=== PATIENT | female | born 1935 | race Caucasian/White ===

== ENCOUNTER 2020-06-04 18:16 | Emergency (ER) | payer MEDICARE, OTHER ==
[2020-06-04] MEDS ORDERED: Meclizine 12.5 MG Tab PO ONE (18:17)
[2020-06-04 20:19] LABS: ANION GAP 12.4 mEq/L (7-13); CHLORIDE,CL 101 mmol/L (98-107); SODIUM,NA 135 mmol/L (136-145)
--- NOTE | 2020-06-04 21:35 | CT ---
PROCEDURE INFORMATION: Exam: CT Head Without Contrast Exam date and time: 06/04/2020 9:16 PM Age: 85 years old Clinical indication: Dizziness TECHNIQUE: Imaging protocol: Computed tomography of the head without contrast. Radiation optimization: All CT scans at this facility use at least one of these dose optimization techniques: automated exposure control; mA and/or kV adjustment per patient size (includes targeted exams where dose is matched to clinical indication); or iterative reconstruction. COMPARISON: No relevant prior studies available. FINDINGS: Brain: There is mild amount of scattered areas of hypoattenuation of the supratentorial white matter, most likely secondary to microvascular ischemic changes. No acute intracranial hemorrhage. Cerebral ventricles: No ventriculomegaly. Bones/joints: Unremarkable. No acute fracture. Paranasal sinuses: Extensive mucosal thickening of paranasal sinuses. Mastoid air cells: Visualized mastoid air cells are well aerated. Soft tissues: Unremarkable. IMPRESSION: No acute intracranial process.
--- NOTE | 2020-06-04 21:47 | EDM.PDOC ---
ED HPI GENERAL MEDICAL PROBLEM - General Chief Complaint: General Stated Complaint: DIZZY,CHILLS GARY BLAH?? BODY ACHES Time Seen by Provider: 06/04/20 20:42 Source of Information: Reports: Patient, RN, RN Notes Reviewed History Limitations: Reports: No Limitations - History of Present Illness INITIAL COMMENTS - FREE TEXT/NARRATIVE: Patient presents to ER with complaint of dizzy spells. States she had one on 05/28/2020, and again this morning. Patient states when she had the dizzy feeling she was unable to stand. Denies the feeling as though the room is spinning. States she felt very weak. This morning the dizziness went away but afterwards patient was tired, weak, and listless. States she rested for the rest of the day. Patient states she takes a medication for urinary incontinence that states side effect of dizziness. Has been taking this medication for a couple of months. Patient states she does see urology on Saturday. Admits to feeling warm and cold occasionally, states she had nausea with the lightheadedness. Denies any urinary symptoms, frequency, urgency, burning with urination, vomiting, diarrhea, unilateral weakness, speech disturbance, visual disturbance. Patient denies any past medical history of stroke. Does admit to hypertension, urinary incontinence, and asthma. Onset: Gradual Onset Date: 05/28/20 - Related Data Allergies Allergy/AdvReac Type Severity Reaction Status Date / Time amoxicillin [From Augmentin] Allergy Nausea and Verified 06/04/20 18:40 Vomiting aspirin Allergy Renal Verified 06/04/20 18:40 Insufficiency budesonide [From Symbicort] Allergy Other Verified 06/04/20 18:40 clavulanic acid Allergy Nausea and Verified 06/04/20 18:40 [From Augmentin] Vomiting formoterol [From Symbicort] Allergy Other Verified 06/04/20 18:40 NSAIDS (Non-Steroidal Allergy Other Verified 06/04/20 18:40 Anti-Inflamma telithromycin [From Ketek] Allergy Cannot Verified 06/04/20 18:40 Remember Home Meds: Home Meds Albuterol/Ipratropium [Combivent Respimat] 2 puff IH Q4HR PRN 09/04/16 [History] Formoterol [Perforomist] 1 ampule INH BID 06/04/20 [History] amLODIPine [Norvasc] 5 mg PO DAILY 06/04/20 [History] Past Medical History Cardiovascular History: Reports: Hypertension Respiratory History: Reports: COPD Social & Family History - Tobacco Use Tobacco Use Status *Q: Never Tobacco User - Recreational Drug Use Recreational Drug Use: No ED ROS GENERAL - Review of Systems Review Of Systems: Comprehensive ROS is negative, except as noted in HPI. ED EXAM, GENERAL - Physical Exam Exam: See Below Exam Limited By: No Limitations General Appearance: Alert, WD/WN, No Apparent Distress Eye Exam: Bilateral Eye: EOMI, Normal Inspection Ears: Normal External Exam, Normal Canal, Hearing Grossly Normal, Normal TMs Nose: Normal Inspection Throat/Mouth: Normal Inspection, Normal Lips, Normal Teeth, Normal Gums, Normal Oropharynx, Normal Voice, No Airway Compromise Head: Atraumatic, Normocephalic Neck: Normal Inspection, Supple, Non-Tender, Full Range of Motion Respiratory/Chest: No Respiratory Distress, Lungs Clear, Normal Breath Sounds, No Accessory Muscle Use, Chest Non-Tender, Decreased Breath Sounds Cardiovascular: Normal Peripheral Pulses, Regular Rate, Rhythm, No Edema, No Gallop, No JVD, No Murmur, No Rub Peripheral Pulses: 2+: Radial (L), Radial (R) GI/Abdominal: Normal Bowel Sounds, Soft, Non-Tender (Female) Exam: Deferred Rectal (Female) Exam: Deferred Back Exam: Normal Inspection, Full Range of Motion, NT Extremities: Normal Inspection, Normal Range of Motion, Non-Tender, Normal Capillary Refill, No Pedal Edema Neurological: Alert, Oriented, CN II-XII Intact, Normal Cognition, Normal Gait, Normal Reflexes, No Motor/Sensory Deficits Psychiatric: Normal Affect, Normal Mood Skin Exam: Warm, Dry, Intact, Normal Color, No Rash Lymphatic: No Adenopathy Course - Vital Signs Last Recorded V/S: Last Vital Signs Temp 97.9 F 06/04/20 18:36 Pulse 74 06/04/20 18:36 Resp 16 06/04/20 18:36 BP 134/59 L 06/04/20 18:36 Pulse Ox 100 06/04/20 18:36 - Orders/Labs/Meds Orders: Active Orders 24 hr Category Date Time Status Isolation [COMM] Routine Oth 06/04/20 20:18 Active Labs: Laboratory Tests 11/07/20 11/07/20 11/07/20 Range/Units 19:44 19:47 19:47 WBC 8.7 (5.0-10.0) 10^3/uL RBC 3.90 L (4.2-5.4) 10^6/uL Hgb 12.7 (12.0-16.0) g/dL Hct 37.3 (37.0-47.0) % MCV 95.6 (80-100) fL MCH 32.6 (27.0-34.0) pg MCHC 34.0 (33.0-35.0) g/dL Plt Count 299 (150-450) 10^3/uL Neut % (Auto) 48.0 (42.2-75.2) % Lymph % (Auto) 40.1 (20.5-50.1) % [place] % (Auto) 7.5 (2-8) % Eos % (Auto) 4.2 H (1.0-3.0) % Baso % (Auto) 0.2 (0.0-1.0) % Sodium 135 L (136-145) mmol/L Potassium 4.4 (3.5-5.1) mmol/L Chloride 101 (98-107) mmol/L Carbon Dioxide 26 (21-32) mmol/L Anion Gap 12.4 (7-13) mEq/L BUN 14 (7-18) mg/dL Creatinine 0.77 (0.55-1.02) mg/dL Est Cr Clr Drug Dosing 38.37 mL/min Estimated GFR (MDRD) > 60 BUN/Creatinine Ratio 18.2 (No establ ref range) Glucose 89 (74-99) mg/dL Calcium 8.9 (8.5-10.1) mg/dL Total Bilirubin 0.4 (0.2-1.0) mg/dL AST 15 (15-37) U/L ALT 17 (14-59) U/L Alkaline Phosphatase 81 (46-116) U/L Lactate Dehydrogenase 120 (81-234) U/L Troponin I < 0.017 (0.000-0.056) ng/mL C-Reactive Protein < 0.2 (0.0-0.9) mg/dL Total Protein 6.4 (6.4-8.2) g/dL Albumin 3.4 (3.4-5.0) g/dL Globulin 3.0 Albumin/Globulin Ratio 1.1 Urine Color (YELLOW) Urine Appearance (CLEAR) Urine pH (5.0-9.0) Ur Specific [place] (1.005-1.030) Urine Protein (NEGATIVE) Urine Glucose (UA) (NEGATIVE) Urine Ketones (NEGATIVE) Urine Occult Blood (NEGATIVE) Urine Nitrite (NEGATIVE) Urine Bilirubin (NEGATIVE) Urine Urobilinogen (0.2-1.0) mg/dL Ur Leukocyte Esterase (NEGATIVE) Urine RBC /HPF Urine WBC (0-5/HPF) /HPF Ur Epithelial Cells (NOT SEEN) /HPF Amorphous Sediment (NOT SEEN) /HPF Urine Bacteria (0-FEW/HPF) /HPF SARS CoV-2 RNA Rapid LIONEL Negative (NEGATIVE) 06/04/20 Range/Units 20:41 WBC (5.0-10.0) 10^3/uL RBC (4.2-5.4) 10^6/uL Hgb (12.0-16.0) g/dL Hct (37.0-47.0) % MCV (80-100) fL MCH (27.0-34.0) pg MCHC (33.0-35.0) g/dL Plt Count (150-450) 10^3/uL Neut % (Auto) (42.2-75.2) % Lymph % (Auto) (20.5-50.1) % [place] % (Auto) (2-8) % Eos % (Auto) (1.0-3.0) % Baso % (Auto) (0.0-1.0) % Sodium (136-145) mmol/L Potassium (3.5-5.1) mmol/L Chloride (98-107) mmol/L Carbon Dioxide (21-32) mmol/L Anion Gap (7-13) mEq/L BUN (7-18) mg/dL Creatinine (0.55-1.02) mg/dL Est Cr Clr Drug Dosing mL/min Estimated GFR (MDRD) BUN/Creatinine Ratio (No establ ref range) Glucose (74-99) mg/dL Calcium (8.5-10.1) mg/dL Total Bilirubin (0.2-1.0) mg/dL AST (15-37) U/L ALT (14-59) U/L Alkaline Phosphatase (46-116) U/L Lactate Dehydrogenase (81-234) U/L Troponin I (0.000-0.056) ng/mL C-Reactive Protein (0.0-0.9) mg/dL Total Protein (6.4-8.2) g/dL Albumin (3.4-5.0) g/dL Globulin Albumin/Globulin Ratio Urine Color Yellow (YELLOW) Urine Appearance Clear (CLEAR) Urine pH 7.0 (5.0-9.0) Ur Specific [place] 1.010 (1.005-1.030) Urine Protein Negative (NEGATIVE) Urine Glucose (UA) Negative (NEGATIVE) Urine Ketones Negative (NEGATIVE) Urine Occult Blood Negative (NEGATIVE) Urine Nitrite Negative (NEGATIVE) Urine Bilirubin Negative (NEGATIVE) Urine Urobilinogen 0.2 (0.2-1.0) mg/dL Ur Leukocyte Esterase Negative (NEGATIVE) Urine RBC Not seen /HPF Urine WBC 0-5 (0-5/HPF) /HPF Ur Epithelial Cells Rare (NOT SEEN) /HPF Amorphous Sediment Rare (NOT SEEN) /HPF Urine Bacteria Rare (0-FEW/HPF) /HPF SARS CoV-2 RNA Rapid LIONEL (NEGATIVE) Influenza A: NEGATIVE Influenza B: NEGATIVE Meds: Medications Discontinued Medications Generic Name Dose Route Start Last Admin Trade Name Freq PRN Reason Stop Dose Admin Meclizine HCl Confirm 06/04/20 21:52 06/04/20 22:07 Antivert Administered 06/04/20 21:53 Not Given Dose 50 mg .ROUTE .[facility] - Radiology Interpretation Free Text/Narrative:: Head CT wo contrast: PROCEDURE INFORMATION: Exam: CT Head Without Contrast Exam date and time: 06/04/2020 9:16 PM Age: 85 years old Clinical indication: Dizziness TECHNIQUE: Imaging protocol: Computed tomography of the head without contrast. Radiation optimization: All CT scans at this facility use at least one of these dose optimization techniques: automated exposure control; mA and/or kV adjustment per patient size (includes targeted exams where dose is matched to clinical indication); or iterative reconstruction. COMPARISON: No relevant prior studies available. FINDINGS: Brain: There is mild amount of scattered areas of hypoattenuation of the supratentorial white matter, most likely secondary to microvascular ischemic changes. No acute intracranial hemorrhage. Cerebral ventricles: No ventriculomegaly. Bones/joints: Unremarkable. No acute fracture. Paranasal sinuses: Extensive mucosal thickening of paranasal sinuses. Mastoid air cells: Visualized mastoid air cells are well aerated. Soft tissues: Unremarkable. IMPRESSION: No acute intracranial process. Thank you for allowing us to participate in the care of your patient. Dictated and Authenticated by: Elvin Wade MD 06/04/2020 9:35 PM Central Time ([place] & [place]) See rad report Departure - Departure Time of Disposition: 21:46 Disposition: Home, Self-Care 01 Condition: Good Clinical Impression: Dizziness - Discharge Information *PRESCRIPTION DRUG MONITORING PROGRAM REVIEWED*: No *COPY OF PRESCRIPTION DRUG MONITORING REPORT IN PATIENT MARY CARMEN: No Instructions: Dizziness, [id number] Referrals: Indra Malhotra MD [Primary Care Provider] - Forms: ED Department Discharge Additional Instructions: Rx: Meclizine 12.5 mg, may take 1 to 2 tablets 4 times daily as needed dizziness Follow-up with urology at your regularly scheduled appointment on Saturday Follow-up with your primary care provider if dizziness continues Return to the ER with any worsening of problems Sepsis Event Note (ED) - Evaluation Sepsis Screening Result: No Definite Risk - Focused Exam Vital Signs: Vital Signs Temp Pulse Resp BP Pulse Ox 06/04/20 18:36 97.9 F 74 16 134/59 L 100 - My Orders Last 24 Hours: My Active Orders 06/04/20 20:18 Isolation [COMM] Routine - Assessment/Plan Last 24 Hours: My Active Orders 06/04/20 20:18 Isolation [COMM] Routine
[2020-06-04] MEDS ORDERED: Meclizine 12.5 MG Tab ONE (21:52)
== END 2020-06-04 22:00 | disposition home or self-care (01) ==
LOC: DL.ED 18:16
DX: R42 Dizziness and giddiness (principal); I10 Essential (primary) hypertension; J44.9 Chronic obstructive pulmonary disease, unspecified; Z88.1 Allergy status to other antibiotic agents; Z88.6 Allergy status to analgesic agent; Z88.8 Allergy status to other drugs, medicaments and biological substances; Z88.3 Allergy status to other anti-infective agents; Z79.899 Other long term (current) drug therapy; Z20.828 Contact with and (suspected) exposure to other viral communicable diseases
CPT/HCPCS: 36415; 70450; 80053; 81001; 83615; 84484; 85025; 86140; 87804; 93005; 99284; A9270; U0002

== ENCOUNTER 2024-05-12 06:28 | Day surgery (SDC) | payer MEDICARE, OTHER ==
[2024-05-12] MEDS ORDERED: Midazolam 1 MG/ML 2 ML SDV IV ONE (06:55)
[2024-05-12] MEDS ORDERED: Midazolam 1 MG/ML 2 ML SDV ONE (06:55)
[2024-05-12] MEDS ORDERED: fentaNYL 100 MCG/2 ML SDV IV ONE (06:55)
[2024-05-12] MEDS ORDERED: fentaNYL 100 MCG/2 ML SDV ONE (06:55)
[2024-05-12] MEDS: Dextrose 5%-0.45% NaCl 1,000 ML IV SCH (07:15)
[2024-05-12] MEDS: fentaNYL 100 MCG/2 ML SDV IV ONE ×2 (08:07)
[2024-05-12] MEDS: Midazolam 1 MG/ML 2 ML SDV IV ONE (08:08)
== END 2024-05-12 09:45 | disposition home or self-care (01) ==
LOC: DL.ENDO 06:28
PROVIDERS: ATTEND Internal Medicine Gastroenterology
DX: R13.10 Dysphagia, unspecified (principal); K59.00 Constipation, unspecified; Z79.82 Long term (current) use of aspirin; Z79.899 Other long term (current) drug therapy; Z79.2 Long term (current) use of antibiotics
CPT/HCPCS: 43235; J2250; J3010; J7799

== ENCOUNTER 2024-05-18 06:45 | Day surgery (SDC) | payer MEDICARE, OTHER ==
[~2024-05-18 06:45] MED LIST: Midazolam 1 MG/ML 2 ML SDV ONE; fentaNYL 100 MCG/2 ML SDV ONE
[2024-05-18] MEDS ORDERED: Midazolam 1 MG/ML 2 ML SDV IV ONE (06:46)
[2024-05-18] MEDS ORDERED: fentaNYL 100 MCG/2 ML SDV IV ONE (06:46)
[2024-05-18] MEDS: Dextrose 5%-0.45% NaCl 1,000 ML IV SCH (07:19)
[2024-05-18] MEDS: fentaNYL 100 MCG/2 ML SDV IV ONE ×3 (07:50→07:59)
[2024-05-18] MEDS: Midazolam 1 MG/ML 2 ML SDV IV ONE ×6 (07:51→08:10)
== END 2024-05-18 10:00 | disposition home or self-care (01) ==
LOC: DL.ENDO 06:45
PROVIDERS: ATTEND Internal Medicine Gastroenterology
DX: K62.1 Rectal polyp (principal); K57.30 Diverticulosis of large intestine without perforation or abscess without bleeding; K64.4 Residual hemorrhoidal skin tags; J45.909 Unspecified asthma, uncomplicated; E78.5 Hyperlipidemia, unspecified
CPT/HCPCS: 45380; 88305; J2250; J3010; J7799

== ENCOUNTER 2024-10-15 20:30 | Emergency (ER) | payer MEDICARE ==
[2024-10-15 21:29] LABS: BASOPHILS PERCENT AUTO 0.2 % (0.0-1.0); EOSINOPHILS PERCENT AUTO 0.1 % (1.0-3.0); HEMATOCRIT 32.2 % (37.0-47.0); LYMPHOCYTES PERCENT AUTO 10.3 % (20.5-50.1); MEAN CORPUSCULAR HGB CONC 34.2 g/dL (33.0-35.0); MEAN CORPUSCULAR VOLUME 90.7 fL (80-100); MONOCYTES PERCENT AUTO 10.2 % (2-8); NEUTROPHILS PERCENT AUTO 79.2 % (42.2-75.2); PLATELET COUNT,PLT 292 10^3/uL (150-450); RED BLOOD CELL COUNT 3.55 10^6/uL (4.2-5.4); WHITE BLOOD CELL COUNT,WBC 11.5 10^3/uL (5.0-10.0)
[2024-10-15 21:54] LABS: LACTIC ACID 0.8 mmol/L (0.4-2.0)
[2024-10-15 21:56] LABS: ALANINE AMINOTRANSFERASE,ALT 16 U/L (14-59); ALBUMIN 2.9 g/dL (3.4-5.0); ALKALINE PHOSPHATASE 80 U/L (46-116); ANION GAP 13.2 mEq/L (7-13); ASPARTATE AMNIOTRANSFERASE,AST 20 U/L (15-37); BILIRUBIN TOTAL 0.9 mg/dL (0.2-1.0); BLOOD UREA NITROGEN,BUN 9 mg/dL (7-18); BUN/CREATININE RATIO 12.7 (No establ ref range); CALCIUM 8.6 mg/dL (8.5-10.1); CARBON DIOXIDE,CO2 26 mmol/L (21-32); CHLORIDE,CL 90 mmol/L (98-107); CREATININE 0.71 mg/dL (0.55-1.02); GLUCOSE RANDOM 122 mg/dL (70-99); LIPASE 14 U/L (16-77); POTASSIUM,K 4.2 mmol/L (3.5-5.1); PROTEIN TOTAL,TP 6.1 g/dL (6.4-8.2); SODIUM,NA 125 mmol/L (136-145)
[2024-10-15 22:00] LABS: A/G RATIO 0.91; ESTIMATED GFR 81 mL/min (>=60)
[2024-10-15] MEDS: Sodium Chloride 0.9% 1,000 ML IV ONE ×2 (22:16→23:37)
[2024-10-15] MEDS: Ondansetron 4 MG/2 ML SDV IVPUSH ONE (22:17)
[2024-10-15 23:01] LABS: APPEARANCE,URINE SLIGHTLY CLOUDY (CLEAR); BILIRUBIN,URINE NEGATIVE (NEGATIVE); COLOR,URINE YELLOW (YELLOW); GLUCOSE,URINE NEGATIVE (NEGATIVE); KETONES,URINE 40 (NEGATIVE); LEUKOCYTE ESTERASE,URINE NEGATIVE (NEGATIVE); NITRITE,URINE NEGATIVE (NEGATIVE); OCCULT BLOOD,URINE NEGATIVE (NEGATIVE); PROTEIN,URINE 30 (NEGATIVE); UROBILINOGEN,URINE 0.2 mg/dL (0.2-1.0)
[2024-10-15 23:11] LABS: BACTERIA,URINE FEW /HPF (0-FEW/HPF); EPITHELIAL CELLS,URINE FEW /HPF (NOT SEEN); MUCUS,URINE FEW /LPF (NOT SEEN); RBC,URINE 0-5 /HPF (0-5)
[2024-10-15] MEDS: Morphine 4 MG/ML Syringe IVPUSH ONE (23:37)
[2024-10-16 00:48] LABS: ANION GAP 11.4 mEq/L (7-13); BLOOD UREA NITROGEN,BUN 8 mg/dL (7-18); CARBON DIOXIDE,CO2 26 mmol/L (21-32); CHLORIDE,CL 95 mmol/L (98-107); CREATININE 0.63 mg/dL (0.55-1.02); GLUCOSE RANDOM 108 mg/dL (70-99); POTASSIUM,K 4.4 mmol/L (3.5-5.1); SODIUM,NA 128 mmol/L (136-145)
[2024-10-16 00:53] LABS: CALCIUM 7.8 mg/dL (8.5-10.1)
[2024-10-16 00:54] LABS: ESTIMATED GFR 85 mL/min (>=60)
[2024-10-16] MEDS ORDERED: Take Home: Ondansetron 4 MG Tab.DIS, 5 Tab Pack PO ONE (01:01)
== END 2024-10-16 00:15 | disposition home or self-care (01) ==
LOC: DL.ED 20:30
DX: E87.1 Hypo-osmolality and hyponatremia (principal); I10 Essential (primary) hypertension; J44.9 Chronic obstructive pulmonary disease, unspecified; Z88.6 Allergy status to analgesic agent; Z88.0 Allergy status to penicillin; Z88.8 Allergy status to other drugs, medicaments and biological substances; Z79.51 Long term (current) use of inhaled steroids; Z79.899 Other long term (current) drug therapy
CPT/HCPCS: 36415; 71045; 80048; 80053; 81001; 83605; 83690; 84484; 85025; 87428; 96361; 96374; 96375; 99285; J2270; J2405; J7030; 99284